=== PATIENT | male | born 1950 | race American Indian/Alaskan Native ===

== ENCOUNTER 2017-02-25 09:01 | Day surgery (SDC) | payer MEDICARE ==
--- NOTE | 2017-02-25 10:59 | CP.SDSHP ---
Same Day Surgery H & P - History Proposed Procedure: US guided FNA of right neck mass Pre-Op Diagnosis: right neck mass - Allergies Allergies: Allergies No Known Allergies Allergy (Unverified 11/03/12 11:12) - Physical Exam Mental Status: Alert & Oriented x3 - Impression Impression: Pt with complex right neck mass refered for biospy. Plan US guided FNA. Informed consent obtained. Pt. Evaluated Today:Candidate for Anesthesia & Procedure: No - Date & Time Date: 02/25/17 Time: 10:00 Short Stay Discharge - Short Stay Discharge Admitting Diagnosis/Reason for Visit: NECK MASS BIOPSY Disposition: HOME/ ROUTINE
--- NOTE | 2017-02-25 11:02 | PCM.SURG1 ---
Surgeon's Initial Post Op Note - Surgeon's Notes Surgeon: Maury Aceves MD Donor Relations Associate: None Type of Anesthesia: Local Pre-Operative Diagnosis: Right neck mass Operative Findings: COmplex 2.2 cm right neck mass. Post-Operative Diagnosis: Right neck mass Operation Performed: US guided FNA Specimen/Specimens Removed: 25g FNA x 5 passes Estimated Blood Loss: EBL {In ML}: 0 Blood Products Given: N/A Drains Used: No Drains Post-Op Condition: Good Date of Surgery/Procedure: 02/25/17 Time of Surgery/Procedure: 11:00
--- NOTE | 2017-02-26 14:53 | US ---
PROCEDURE: Date of procedure: 02/25/2017 Procedure: Ultrasound-guided FNA of right neck mass, CPT 20981 Ultrasound guidance for biopsy, [id number] Medications:4cc 1% Lidocaine HISTORY: Right neck mass measuring 2.8 cm TECHNIQUE: Following informed consent and procedure time-out, limited ultrasound patient's right neck demonstrates a large complex mass in the submandibular region measuring 2.8 cm. The patient's neck was prepped and draped in the usual sterile fashion. The skin was anesthetized with 1 percent lidocaine. Ultrasound-guided fine needle aspiration was then performed using a 25 gauge needle. A total of 6 passes were made into the lymph node under direct ultrasound guidance. FNA specimens were obtained and sent for routine pathology and flow cytometry. A post biopsy ultrasound showed no hematoma IMPRESSION: Ultrasound-guided biopsy of enlarged right neck mass.
== END 2017-02-25 12:00 | disposition home or self-care (01) ==
LOC: C.SDS 09:01
PROVIDERS: ATTEND Radiology Vascular & Interventional Radiology
DX: R22.1 Localized swelling, mass and lump, neck (principal)